=== PATIENT | male | born 1975 | race Caucasian/White ===

== ENCOUNTER 2017-05-01 09:40 | Emergency (ER) | payer BC ==
[~2017-05-01] VITALS: Ht 182.9 cm; Wt 89.8 kg
[~2017-05-01 09:40] MED LIST: LVF500T PO; METR500T PO; NF-ESOM40C PO; RANI75TA30 PO; ROCURONIUM 10 MG/ML 5 ML SYRINGE IV ONE; SUCCINYLCHOLINE INJ 100 MG/5 ML SYR ONE
[2017-05-01] MEDS ORDERED: PROPOFOL DRIP (ICU) 100 ML IV ONE (09:45)
[2017-05-01] MEDS ORDERED: NS IV 1000 ML 1,000 ML IV ONE (09:54)
[2017-05-01 09:59] LABS: ABG BASE EXCESS -7.4 MMOL/L (-2.5-2.5); ABG OXYGEN SATURATION 93 % (94-100); ABG PCO2 38 MMHG (35-45); ABG PO2 59 MMHG (79-93); ABG TCO2 19.5 MMOL/L (21.0-31.0)
[2017-05-01 10:03] LABS: ALLENS TEST YES-POS; INSPIRED O2 15; PATIENT TEMP 95.4; VENTILATOR NO
[2017-05-01 10:09] LABS: BASOPHILS # (AUTO) 0.1 10^3/uL (0.0-0.1); BASOPHILS % (AUTO) 0 % (0-10); EOSINOPHILS # (AUTO) 0.3 10^3/uL (0.0-0.3); EOSINOPHILS % (AUTO) 2 % (0-10); HEMATOCRIT 46 % (40-54); HEMOGLOBIN 15.9 G/DL (13.3-17.7); LYMPHOCYTES # (AUTO) 4.6 X 10^3 (1.0-4.0); LYMPHOCYTES % (AUTO) 28 % (12-44); MEAN CORPUSCULAR HEMOGLOBIN 32 PG (25-34); MEAN CORPUSCULAR HGB CONC 35 G/DL (32-36); MEAN CORPUSCULAR VOLUME 93 FL (80-99); MEAN PLATELET VOLUME 9.7 FL (7.4-10.4); MONOCYTES # (AUTO) 0.8 X 10^3 (0.0-1.0); MONOCYTES % (AUTO) 5 % (0-12); NEUTROPHILS # (AUTO) 10.8 X 10^3 (1.8-7.8); NEUTROPHILS % (AUTO) 66 % (42-75); PLATELET COUNT 216 10^3/uL (130-400); RED BLOOD COUNT 4.93 10^6/uL (4.35-5.85); RED CELL DISTRIBUTION WIDTH 13.5 % (10.0-14.5); WHITE BLOOD COUNT 16.5 10^3/uL (4.3-11.0)
[2017-05-01] MEDS ORDERED: RT-ALBUTEROL/IPRATROPIUM 3 ML (DUONEB) VIAL ONE ×2 (10:14→13:26)
[2017-05-01] MEDS ORDERED: RT-ALBUTEROL SULF 2.5 MG/3 ML PRE-MIX VIAL ONE (10:15)
[2017-05-01] MEDS ORDERED: DEXAMETHASONE 4 MG/ML SDV (DECADRON) ONE (10:16)
[2017-05-01] MEDS ORDERED: FUROSEMIDE 40 MG/4 ML INJ (LASIX) ONE (10:17)
[2017-05-01] MEDS ORDERED: methylPREDNISolone 125 MG (Solu-MEDROL) VIAL ONE (10:17)
[2017-05-01 10:18] LABS: BILIRUBIN,URINE NEGATIVE (NEGATIVE); CLARITY,URINE CLEAR; COLOR,URINE YELLOW; GLUCOSE, URINE (UA) 2+ (NEGATIVE); KETONES,URINE NEGATIVE (NEGATIVE); LEUKOCYTE ESTERASE ,URINE NEGATIVE (NEGATIVE); NITRITE,URINE NEGATIVE (NEGATIVE); PH,URINE 7 (5-9); PROTEIN,URINE 3+ (NEGATIVE); UROBILINOGEN,URINE NORMAL (NORMAL)
[2017-05-01 10:19] LABS: INR 1.1 (0.8-1.4); PROTHROMBIN TIME PATIENT 14.4 SEC (12.2-14.7)
[2017-05-01] MEDS ORDERED: cefTRIAXone 2 GM (ROCEPHIN) VIAL ONE (10:23)
[2017-05-01] MEDS ORDERED: NS (IVPB) 100 ML ONE ×3 (10:24→15:59)
[2017-05-01 10:28] LABS: AMPHETAMINE SCREEN, URINE NEGATIVE (NEGATIVE); BARBITURATE SCREEN URINE NEGATIVE (NEGATIVE); BENZODIAZEPINES SCREEN URINE NEGATIVE (NEGATIVE); CANNABINOID SCREEN, URINE POSITIVE (NEGATIVE); COCAINE SCREEN URINE NEGATIVE (NEGATIVE); METHADONE STAT NEGATIVE (NEGATIVE); METHAMPHETAMINE SCREEN URINE S NEGATIVE (NEGATIVE); OPIATE SCREEN URINE NEGATIVE (NEGATIVE); OXYCODONE STAT NEGATIVE (NEGATIVE); PROPOXYPHENE STAT NEGATIVE (NEGATIVE); TRICYCLIC ANTIDEPRESSANTS SCRE NEGATIVE (NEGATIVE)
[2017-05-01] MEDS ORDERED: FUROSEMIDE 40 MG/4 ML INJ (LASIX) IVP ONE (10:30)
[2017-05-01] MEDS ORDERED: NALOXONE 0.4 MG/ML 1 ML (NARCAN) VIAL ONE (10:30)
[2017-05-01] MEDS ORDERED: DOPamine DRIP 400,000 MCG/250 ML BAG IV ONE (10:30)
[2017-05-01] MEDS ORDERED: cefTRIAXone INJECTION 2,000 MG in NS (IVPB) 100 ML IV ONE (10:30)
[2017-05-01] MEDS ORDERED: RT-ALBUTEROL/IPRATROPIUM 3 ML (DUONEB) VIAL INH ONE ×2 (10:30→13:30)
[2017-05-01] MEDS ORDERED: ATROPINE INJECTION 1 MG/10 ML SYR (ABBOTT) ONE (10:30)
[2017-05-01] MEDS ORDERED: methylPREDNISolone 125 MG (Solu-MEDROL) VIAL IVP ONE (10:30)
[2017-05-01] MEDS ORDERED: DEXAMETHASONE 4 MG/ML SDV (DECADRON) IH ONE (10:30)
[2017-05-01] MEDS ORDERED: EPINEPHrine INJECTION 1 MG/ML AMP ONE (10:30)
[2017-05-01 10:31] LABS: ALANINE AMINOTRANSFERASE 37 U/L (0-55); ALBUMIN 2.8 GM/DL (3.2-4.5); ALKALINE PHOSPHATASE 69 U/L (40-136); BILIRUBIN,TOTAL 0.3 MG/DL (0.1-1.0); BUN/CREATININE RATIO 12; CARBON DIOXIDE 19 MMOL/L (21-32); CHLORIDE 111 MMOL/L (98-107); CREATININE SERUM 0.95 MG/DL (0.60-1.30); GFR ESTIMATED > 60; GLUCOSE 206 MG/DL (70-105); MAGNESIUM 1.7 MG/DL (1.8-2.4); POTASSIUM 3.5 MMOL/L (3.6-5.0); SODIUM 140 MMOL/L (135-145); TOTAL PROTEIN 4.8 GM/DL (6.4-8.2)
[2017-05-01 10:35] LABS: ACETAMINOPHEN < 10 UG/ML (10-30)
[2017-05-01] MEDS ORDERED: LABETALOL HCL 20 MG/4 ML VIAL ONE (10:39)
[2017-05-01 10:43] LABS: BACTERIA,URINE NEGATIVE /HPF
[2017-05-01 10:44] LABS: BAND NEUTROPHILS 0 %; BASOPHILS % (MANUAL) 0 %; EOSINOPHILS % (MANUAL) 0 %; LYMPHOCYTES % (MANUAL) 22 %; MONOCYTES % (MANUAL) 2 %; NEUTROPHILS % (MANUAL) 76 %; RBC MORPH NORMAL
--- NOTE | 2017-05-01 10:44 | Diagnostic Imaging Report ---
INDICATION: Status post code. EXAMINATION: Chest 05/01/2017 FINDINGS: Diffuse airspace and increased interstitial markings seen throughout both lungs left greater than right. There is no pneumothorax. There are no effusions. Heart is minimally prominent. Pulmonary vascular congestion is noted. ET tube tip just below the thoracic inlet. IMPRESSION: 1. Diffuse pulmonary edema with likely superimposed infiltrate left greater than right. Dictated by: Dictated on workstation # [id number]
[2017-05-01] MEDS ORDERED: LABETALOL INJECTION 200 MG in NS (IVPB) 160 ML IV PRN (10:45)
--- NOTE | 2017-05-01 10:47 | Anesthesia-Procedure Note ---
Procedures/Interventions Procedure Start/Stop/Diagnosis Date of Procedure: May 01, 2017 Start Time: 09:44 Referring Physician: Dr Velasquez Preprocedural Diagnosis: Code Blue Brief History Patient with a friend and spontaneously went unconscious. CPR started at the scene. Agonal respirations present, assist bag ventilation by RN and RT with SaO2 87-89%. Stop Time: 10:01 Intubation Reason Intubation/Diagnosis: code blue RSI: Yes Vital Signs Pre-procedure Hypertensive. HR 100-110, SaO2 87-89% with bag mask ventilation Intubation Method: orotracheal (8.0 ett) Videoscope used: Yes (Jimenez X blade) Grade View: 1 Medications: Propofol (100 mg ), Succinylcholine (100 mg) Mask Ventilation: positive Positive End Tide CO2: Yes Breath Sounds after Intubation: bilateral-equal ETT Securred @ (cm): 22 Intubated with ease: Yes (bekah red blood coming from patient's mouth prior to intubation. Assumed possible tongue, oral injury from prior events??? Unable to determine during intubation. Bleeding did not continue.) Intubation Complications: no complications Post Intubation Xray-done: Yes Post Procedure Patient's SaO2 gradually decreased to 70% after intubation. EtCO2 32, good bilateral breath sounds, CXR shows correct placement of ett. RT increased Peep to 12 and SaO2 slowly climbed to 85%. 100mg Propofol given post intubation due to Hypertension and patient attempting to assist ventilation, and biting on OG as it was being placed. After correct tube placement confirmed by CXR, 50mg Rocuronium given (Ok'd per Dr. Velasquez). Plans being made to ship patient to [facility]. Care turned over to: CANDIDO Gaming CRNA May 01, 2017 10:47
[2017-05-01] MEDS ORDERED: PHENYTOIN 250 MG/5 ML INJ (DILANTIN) VIAL ONE ×2 (10:52→10:54)
[2017-05-01] MEDS ORDERED: NS (IVPB) 50 ML ONE (10:55)
--- NOTE | 2017-05-01 10:57 | Consultation-Cardiology ---
HPI-Cardiology Cardiology Consultation: Date of Consultation 05/01/17 Date of Admission Attending Physician Admitting Physician Lashell,Local Physician Consulting Physician Faith RODAS MD HPI: Time Seen by Provider: 10:35 Chief Complaint: Cardiac arrest this is a 41-year-old gentleman who was brought to ER by EMS due to arrest, unresponsiveness in the field. He was intubated and ventilated in the field. In our ER the patient was in sinus tachycardia on EKG with no ST elevation or depression. He was unresponsive and not moving any of his limbs. Heart rate was 118 BPM. Systolic blood pressure was over 220 mmHg. History was limited. Stat head CT showed large bleed. Chest x-ray showed bilateral diffuse infiltrates. Review of Systems-Cardiology Review of Systems Constitutional: As described under HPI Eyes: As described under HPI Ears/Nose/Throat: As described under HPI Respiratory: As described under HPI Cardiovascular: As described under HPI Gastrointestinal: no symptoms reported Genitourinary: no symptoms reported Musculoskeletal: no symptoms reported Skin: no symptoms reported Psychiatric/Neurological: other (Intubated/ventilated) Hematologic: As described under HPI EGZ-Siwemc-Vknsrj Hx Immunizations Up To Date Tetanus Booster (TDap): More than 5yrs Past Medical History PMH As described under Assessment. Allergies and Home Medications Allergies Coded Allergies: Penicillins (Unverified Allergy, Unknown, 09/25/12) Patient Home Medication List Home Medication List Reviewed: Yes Physical Exam-Cardiology Physical Exam Vital Signs/I&O Vital Sign - Last 12Hours 05/01/17 05/01/17 05/01/17 05/01/17 11:35 11:47 12:24 14:14 Pulse 140 115 143 Resp 20 18 24 B/P (MAP) 205/154 Pulse Ox 76 93 84 O2 Delivery Ambu Bag Ambu-Bag FiO2 100 100 05/01/17 05/01/17 16:30 16:35 Temp 96.4 Pulse 146 146 Resp 24 24 B/P (MAP) 109/94 109/94 (99) Pulse Ox 88 88 O2 Delivery Mechanical Ventilator Ambu Bag O2 Flow Rate 100.00 100.00 Capillary Refill : Constitutional: other (intubated/ventilated) HEENT: No PERRL, No normal ENT inspection, No TMs normal, No pharynx normal, No scleral icterus (R), No scleral icterus (L), No pale conjunctivae (R), No pale conjunctivae (L), No photophobia, No TM abnormal (R), No TM abnormal (L), No pharyngeal erythema, No tonsillar exudate, No other, No discharge, No EOMI, No hearing is well preserved, No hard of hearing, No oral hygience is good, No ulceration, No xanthelasmas are seen Neck: No non-tender, No full range of motion, No supple, No normal inspection, No carotid bruit, No limited range of motion, No lymphadenopathy (R), No lymphadenopathy (L), No tender lateral, No tender midline, No thyromegaly, No other, No carotid pulses are 2 + bilaterally, No with good upstrokes Respiratory: respiratory distress, crackles Cardiovascular: regular rate-rhythm, No irregularly irregular, No extra beats, No parasternal heave is noted, No JVD, No edema, No bradycardia, tachycardia, No point of maximal impulse, No cardiac thrills are palpable, S1 and S2, No gallop/S3, No gallop/S4, No diastolic murmur, No systolic murmur, No friction rub, No click, No other Gastrointestinal: No tender, No soft, No round, No distended, No pulsatile mass , No organomegaly, No guarding, No rebound, No tenderness, No hernia, No mass, No audible bowel sounds, No abnormal bowel sounds, No abdominal bruits, No spleenomegaly, No other Rectal: deferred Extremities: No normal range of motion, No non-tender, normal inspection, No pedal edema, No calf tenderness, No normal capillary refill, No pelvis stable, No calf tenderness, No inflammation, No pedal edema, No slow capillary refill, No swelling, No other, No abrasion, No clubbing, No cyanosis, No ecchymosis, No laceration, no lower extremity edema bilateral, No significant edema, No tenderness, No wound Neurologic/Psychiatric: No dicer operator II-XII nml as tested, No no motor/sensory deficits, No alert, No normal mood/affect, No oriented x 3, No abnormal cerebellar tests, No abnormal dicer operator II-XII, No abnormal gait, No aphasia, No EOM palsy, No facial droop, No motor weakness, No sensory deficit, No depressed affect, No disoriented x 3, other (intubated/ventilated), No grossly intact, No power is 5/5 both on sides Skin: cool Data Review Labs Laboratory Tests 05/01/17 09:54: Blood Gas Puncture Site r radial, Blood Gas Patient Temperature 95.4, Arterial Blood pH 7.30*L, Arterial Blood Partial Pressure CO2 38, Arterial Blood Partial Pressure O2 59L, Arterial Blood HCO3 18L, Arterial Blood Total CO2 19.5L, Arterial Blood Oxygen Saturation 93L, Arterial Blood Base Excess -7.4L, Darrell Test YES-POS, Blood Gas Ventilator Setting NO, Blood Gas Inspired Oxygen 15 05/01/17 10:00: White Blood Count 16.5H, Red Blood Count 4.93, Hemoglobin 15.9, Hematocrit 46, Mean Corpuscular Volume 93, Mean Corpuscular Hemoglobin 32, Mean Corpuscular Hemoglobin Concent 35, Red Cell Distribution Width 13.5, Platelet Count 216, Mean Platelet Volume 9.7, Neutrophils (%) (Auto) 66, Lymphocytes (%) (Auto) 28, Monocytes (%) (Auto) 5, Eosinophils (%) (Auto) 2, Basophils (%) (Auto) 0, Neutrophils # (Auto) 10.8H, Lymphocytes # (Auto) 4.6H, Monocytes # (Auto) 0.8, Eosinophils # (Auto) 0.3, Basophils # (Auto) 0.1, Neutrophils % (Manual) 76, Lymphocytes % (Manual) 22, Monocytes % (Manual) 2, Eosinophils % (Manual) 0, Basophils % (Manual) 0, Band Neutrophils 0, Blood Morphology Comment NORMAL, Prothrombin Time 14.4, INR Comment 1.1, Activated Partial Thromboplast Time 30, Sodium Level 140, Potassium Level 3.5L, Chloride Level 111H, Carbon Dioxide Level 19L, Anion Gap 10, Blood Urea Nitrogen 11, Creatinine 0.95, Estimat Glomerular Filtration Rate > 60, BUN/Creatinine Ratio 12, Glucose Level 206H, Lactic Acid Level 4.09*H, Calcium Level 7.0L, Magnesium Level 1.7L, Total Bilirubin 0.3, Aspartate Amino Transf (AST/SGOT) 43H, Alanine Aminotransferase ( ALT/SGPT) 37, Alkaline Phosphatase 69, Troponin I < 0.30, B-Type Natriuretic Peptide 23.2, Total Protein 4.8L, Albumin 2.8L, Acetaminophen Level < 10L, Serum Alcohol < 10 05/01/17 10:08: Urine Color YELLOW, Urine Clarity CLEAR, Urine pH 7, Urine Specific [place] 1.010L, Urine Protein 3+H, Urine Glucose (UA) 2+H, Urine Ketones NEGATIVE, Urine Nitrite NEGATIVE, Urine Bilirubin NEGATIVE, Urine Urobilinogen NORMAL, Urine Leukocyte Esterase NEGATIVE, Urine RBC (Auto) 4+H, Urine RBC 10-25H, Urine WBC NONE, Urine Squamous Epithelial Cells NONE, Urine Crystals NONE, Urine Bacteria NEGATIVE, Urine Casts NONE, Urine Mucus NEGATIVE, Urine Culture Indicated NO, Urine Opiates Screen NEGATIVE, Urine Oxycodone Screen NEGATIVE, Urine Methadone Screen NEGATIVE, Urine Propoxyphene Screen NEGATIVE, Urine Barbiturates Screen NEGATIVE, Ur Tricyclic Antidepressants Screen NEGATIVE, Urine Phencyclidine Screen NEGATIVE, Urine Amphetamines Screen NEGATIVE, Urine Methamphetamines Screen NEGATIVE, Urine Benzodiazepines Screen NEGATIVE, Urine Cocaine Screen NEGATIVE, Urine Cannabinoids Screen POSITIVEH 05/01/17 12:22: Blood Gas Puncture Site r brachial, Blood Gas Patient Temperature 96.6, Arterial Blood pH 6.97*L, Arterial Blood Partial Pressure CO2 102*H, Arterial Blood Partial Pressure O2 60L, Arterial Blood HCO3 23, Arterial Blood Total CO2 26.2, Arterial Blood Oxygen Saturation 83L, Arterial Blood Base Excess -8.0L, Darrell Test YES-POS, Blood Gas Ventilator Setting YES, Blood Gas Inspired Oxygen 100 05/01/17 13:13: Lactic Acid Level 3.83*H 05/01/17 13:54: Blood Gas Puncture Site R RADIAL, Blood Gas Patient Temperature 96.4, Arterial Blood pH 7.01*L, Arterial Blood Partial Pressure CO2 102*H, Arterial Blood Partial Pressure O2 54L, Arterial Blood HCO3 25, Arterial Blood Total CO2 28.2, Arterial Blood Oxygen Saturation 81L, Arterial Blood Base Excess -5.6L, Darrell Test YES-POS, Blood Gas Ventilator Setting YES, Blood Gas Inspired Oxygen NS 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 etiology unclear, aneurysm rupture vs severe HTN associated?. plan to shift to [facility]. Mannitol infusion. CT head was reviewed by self. Hypertensive crisis: SBP > 220mmhg. Given labetalol bolus. Will start nicardipine infusion. watch for precipitous drop in BP. Keep systolic BP > 160mmhg. Pulmonary edema/ARDS: etiology unclear. intubated, difficult to ventilate. CXR was reviewed by self. Cardiac arrest? : unclear primary arrest. EKG on arrival shows sinus tachycardia with ST elevation or depression. Telemetry shows sinus tachycardia. Unresponsive, with poor prognosis. Critical patient - spend over 30 minutes. Thank you for your consultation. Please call me if you have any questions. Mia Rodas MD, FACP, FACC, FSCAI, FHRS, CCDS Interventional Cardiology Cardiac Electrophysiology Vascular Medicine and Endovascular Interventions Faith RODAS MD May 01, 2017 10:57
[2017-05-01] MEDS ORDERED: niCARdipine 50 MG/NS 250 ML IV DRIP IV SCH ×2 (11:00)
[2017-05-01] MEDS ORDERED: PHENYTOIN INJECTION 1,000 MG in NS (IVPB) 50 ML, 0.2 MICRON FILTER IV SET 1 EACH IV ONE ×3 (11:00)
--- NOTE | 2017-05-01 11:00 | Diagnostic Imaging Report ---
INDICATION: Possible stroke. Status post code. EXAMINATION: CT of the brain without contrast 05/01/2017. FINDINGS: Axial imaging of the brain without contrast Diffuse subarachnoid hemorrhage is noted. There is hemorrhage involving nearly all the sulci bilaterally. There is blood within the basilar cisterns. Hyperdensity is noted within the third ventricle with hyperdensity in the fourth ventricle as well. No significant hydrocephalus is seen at this time. There is no mass, mass effect or midline shift. No definite acute infarcts appreciated. Loss of the normal sulci noted likely due to underlying edema. The osseous structures are intact. Visualized paranasal sinuses and mastoid air cells demonstrate no acute disease. Mucosal thickening incidentally noted bilaterally within the visualized maxillary sinuses. IMPRESSION: 1. Marked diffuse bilateral subarachnoid hemorrhage as described above with likely developing edema. 2. Intraventricular hemorrhage. Exact source of hemorrhage is not appreciated. Followup and/or further imaging may be warranted. Findings called to the ER by Dr. Lóepz on 05/01/2017 at 10:52 a.m. Dictated by: Dictated on workstation # [id number]
[2017-05-01] MEDS ORDERED: MAGNESIUM 1 GM/100 ML IVPB 100 ML IV ONE ×2 (11:30)
[2017-05-01] MEDS ORDERED: DOBUTamine INJECTION 250 MG in NS (IVPB) 250 ML IV SCH (11:45)
[2017-05-01] MEDS ORDERED: MANNITOL 20% IV PREMIX 500 ML IV ONE (11:55)
[2017-05-01] MEDS ORDERED: MANNITOL 25% 12.5 GM/50 ML VIAL IV ONE (12:00)
--- NOTE | 2017-05-01 12:01 | ED CPR ---
HPI-CPR General Chief Complaint: Code Blue Stated Complaint: CODE BLUE Source of Information: EMS, Other (FRIEND) History of Present Illness Date Seen by Provider: May 01, 2017 Time Seen by Provider: 09:42 Initial Comments PT ARRIVES VIA EMS PT HAD WITNESSED ARREST PT WAS PASSENGER IN VEHICLE WITH HIS FRIEND ( WERE ON THEIR WAY TO GO FISHING, AND WERE AT A GAS STATION ) AND SUDDENLY, FRIEND WITNESSED PT HAVING STIFFNESS OF HIS ENTIRE BODY, AGONAL SNOROUS BREATHING AND WAS UNRESPONSIVE, AND COULD NOT FEEL PULSE AND PT WAS NOT BREATHING FRIEND IMMEDIATELY BEGAN CPR AND CALLED EMS CPR WAS CONTINUED BY EMS/FIRE DEPT, WITH RETURN OF CIRCULATION. EMS CONTINUED BAGGING PT AND BROUGHT PT TO ER, PT IS APNEIC WITH RARE AGONAL BREATHING. NO MEDICATIONS HAVE BEEN GIVEN BY EMS. EMS REPORT THERE WAS BRIGHT RED BLOOD NOTED IN HIS MOUTH WHEN THEY PLACED ORAL AIRWAY, BEFORE BAGGING PT. EMS DID NOT ATTEMPT TO INTUBATE PT, AND NOTHING ELSE WAS PLACED IN PT'S MOUTH, OTHER THAN ORAL AIRWAY. FRIEND REPORTS THAT HE WAS WITH PT ALL NIGHT AND THIS MORNING, AND PT HAD 5 BEERS LAST NIGHT, BUT NONE TODAY. ONLY INTAKE TODAY WAS PT WAS FINE ALL DAY YESTERDAY WHEN THEY WERE FISHING AND WAS COMPLETELY FINE THIS AM, JUST PRIOR TO THIS EVENT. DAD AND BROTHER ARRIVE, AND REPORT THAT PT DOES NOT HAVE ANY KNOWN MEDICAL PROBLEMS AT ALL PT HAS HAD VISIT IN 2012 FOR APPY AND EGD AND HIATAL HERNIA REPAIR. Allergies and Home Medications Allergies Coded Allergies: Penicillins (Unverified Allergy, Unknown, 09/25/12) Review of Systems Constitutional: other (UNABLE TO OBTAIN) Past Xxdseql-Uusvty-Hpqcog Hx Patient Social History Alcohol Use: Occasionally Uses (PER FRIEND) Recreational Drug Use: Yes (THC--PER FRIEND) Immunizations Up To Date Tetanus Booster (TDap): More than 5yrs PED Vaccines UTD: Yes Surgeries History of Surgeries: Yes (EGD; HIATAL HERNIA REPAIR) Surgeries: Abdominal, Appendectomy Reproductive System Hx Reproductive Disorders: No Gastrointestinal Gastrointestinal Disorders: Ulcer Blood Transfusions Adverse Reaction to a Blood Tr: No Physical Exam Vital Signs Vital Signs - First Documented 05/01/17 10:20 O2 Delivery Ambu Bag FiO2 100 Capillary Refill : Focused Exam Evaluation Lactate Level Laboratory Tests 05/01/17 10:00: Lactic Acid Level 4.09*H 05/01/17 12:03: Lactic Acid Level Laboratory Tests Test 05/01/17 10:00 05/01/17 12:03 Lactic Acid Level 4.09 MMOL/L (0.50-2.00) *H Reason for Intubation: code blue Intubation Method: orotracheal (8.0 ett) Medications: Propofol (100 mg ), Succinylcholine (100 mg) Positive End Tide CO2: Yes Breath Sounds after Intubation: bilateral-equal Intubation Complications: no complications Post Intubation Xray: Yes Progress/Results/Core Measures Results/Orders Lab Results Laboratory Tests Test 05/01/17 09:54 05/01/17 10:00 05/01/17 10:08 05/01/17 12:03 Range/Units Blood Gas Puncture Site r radial Blood Gas Patient Temperature 95.4 Arterial Blood pH 7.30 *L 7.37-7.43 Arterial Blood Partial Pressure CO2 38 35-45 MMHG Arterial Blood Partial Pressure O2 59 L 79-93 MMHG Arterial Blood HCO3 18 L 23-27 MMOL/L Arterial Blood Total CO2 19.5 L 21.0-31.0 MMOL/L Arterial Blood Oxygen Saturation 93 L 94-100 % Arterial Blood Base Excess -7.4 L -2.5-2.5 MMOL/L Darrell Test YES-POS Blood Gas Ventilator Setting NO Blood Gas Inspired Oxygen 15 White Blood Count 16.5 H 4.3-11.0 10^3/uL Red Blood Count 4.93 4.35-5.85 10^6/uL Hemoglobin 15.9 13.3-17.7 G/DL Hematocrit 46 40-54 % Mean Corpuscular Volume 93 80-99 FL Mean Corpuscular Hemoglobin 32 25-34 PG Mean Corpuscular Hemoglobin Concent 35 32-36 G/DL Red Cell Distribution Width 13.5 10.0-14.5 % Platelet Count 216 130-400 10^3/uL Mean Platelet Volume 9.7 7.4-10.4 FL Neutrophils (%) (Auto) 66 42-75 % Lymphocytes (%) (Auto) 28 12-44 % Monocytes (%) (Auto) 5 0-12 % Eosinophils (%) (Auto) 2 0-10 % Basophils (%) (Auto) 0 0-10 % Neutrophils # (Auto) 10.8 H 1.8-7.8 X 10^3 Lymphocytes # (Auto) 4.6 H 1.0-4.0 X 10^3 Monocytes # (Auto) 0.8 0.0-1.0 X 10^3 Eosinophils # (Auto) 0.3 0.0-0.3 10^3/uL Basophils # (Auto) 0.1 0.0-0.1 10^3/uL Neutrophils % (Manual) 76 % Lymphocytes % (Manual) 22 % Monocytes % (Manual) 2 % Eosinophils % (Manual) 0 % Basophils % (Manual) 0 % Band Neutrophils 0 % Blood Morphology Comment NORMAL Prothrombin Time 14.4 12.2-14.7 SEC INR Comment 1.1 0.8-1.4 Activated Partial Thromboplast Time 30 24-35 SEC Sodium Level 140 135-145 MMOL/L Potassium Level 3.5 L 3.6-5.0 MMOL/L Chloride Level 111 H 98-107 MMOL/L Carbon Dioxide Level 19 L 21-32 MMOL/L Anion Gap 10 5-14 MMOL/L Blood Urea Nitrogen 11 7-18 MG/DL Creatinine 0.95 0.60-1.30 MG/DL Estimat Glomerular Filtration Rate > 60 BUN/Creatinine Ratio 12 Glucose Level 206 H 70-105 MG/DL Lactic Acid Level 4.09 *H 0.50-2.00 MMOL/L Calcium Level 7.0 L 8.5-10.1 MG/DL Magnesium Level 1.7 L 1.8-2.4 MG/DL Total Bilirubin 0.3 0.1-1.0 MG/DL Aspartate Amino Transf (AST/SGOT) 43 H 5-34 U/L Alanine Aminotransferase (ALT/SGPT) 37 0-55 U/L Alkaline Phosphatase 69 40-136 U/L Troponin I < 0.30 <0.30 NG/ML B-Type Natriuretic Peptide 23.2 <100.0 PG/ML Total Protein 4.8 L 6.4-8.2 GM/DL Albumin 2.8 L 3.2-4.5 GM/DL Acetaminophen Level < 10 L 10-30 UG/ML Serum Alcohol < 10 <10 MG/DL Urine Color YELLOW Urine Clarity CLEAR Urine pH 7 5-9 Urine Specific Earth 1.010 L 1.016-1.022 Urine Protein 3+ H NEGATIVE Urine Glucose (UA) 2+ H NEGATIVE Urine Ketones NEGATIVE NEGATIVE Urine Nitrite NEGATIVE NEGATIVE Urine Bilirubin NEGATIVE NEGATIVE Urine Urobilinogen NORMAL NORMAL MG/DL Urine Leukocyte Esterase NEGATIVE NEGATIVE Urine RBC (Auto) 4+ H NEGATIVE Urine RBC 10-25 H /HPF Urine WBC NONE /HPF Urine Squamous Epithelial Cells NONE /HPF Urine Crystals NONE /LPF Urine Bacteria NEGATIVE /HPF Urine Casts NONE /LPF Urine Mucus NEGATIVE /LPF Urine Culture Indicated NO Urine Opiates Screen NEGATIVE NEGATIVE Urine Oxycodone Screen NEGATIVE NEGATIVE Urine Methadone Screen NEGATIVE NEGATIVE Urine Propoxyphene Screen NEGATIVE NEGATIVE Urine Barbiturates Screen NEGATIVE NEGATIVE Ur Tricyclic Antidepressants Screen NEGATIVE NEGATIVE Urine Phencyclidine Screen NEGATIVE NEGATIVE Urine Amphetamines Screen NEGATIVE NEGATIVE Urine Methamphetamines Screen NEGATIVE NEGATIVE Urine Benzodiazepines Screen NEGATIVE NEGATIVE Urine Cocaine Screen NEGATIVE NEGATIVE Urine Cannabinoids Screen POSITIVE H NEGATIVE Test 05/01/17 12:22 Range/Units Blood Gas Puncture Site r brachial Blood Gas Patient Temperature 96.6 Arterial Blood pH 6.97 *L 7.37-7.43 Arterial Blood Partial Pressure CO2 102 *H 35-45 MMHG Arterial Blood Partial Pressure O2 60 L 79-93 MMHG Arterial Blood HCO3 23 23-27 MMOL/L Arterial Blood Total CO2 26.2 21.0-31.0 MMOL/L Arterial Blood Oxygen Saturation 83 L 94-100 % Arterial Blood Base Excess -8.0 L -2.5-2.5 MMOL/L Darrell Test YES-POS Blood Gas Ventilator Setting YES Blood Gas Inspired Oxygen 100 My Orders Orders - ELIANE AYERS DO Arterial Blood Gas (05/01/17 09:53) Saline Lock/Iv-Start (05/01/17 09:54) Ekg Tracing (05/01/17 09:54) Monitor-Rhythm Ecg Trace Only (05/01/17 09:54) Acetaminophen (05/01/17 09:54) Alcohol (05/01/17 09:54) BNP (05/01/17 09:54) Cbc With Automated Diff (05/01/17 09:54) Comprehensive Metabolic Panel (05/01/17 09:54) Drug Screen Stat (Urine) (05/01/17 09:54) Magnesium (05/01/17 09:54) Protime With Inr (05/01/17 09:54) Partial Thromboplastin Time (05/01/17 09:54) Troponin I (05/01/17 09:54) Ua Culture If Indicated (05/01/17 09:54) Chest 1 View, Ap/Pa Only (05/01/17 09:54) Rt Request For Service (05/01/17 09:54) Saline Lock/Iv-Start (05/01/17 09:54) Ns Iv 1000 Ml (Sodium Chloride 0.9%) (05/01/17 09:54) Catheter(Urinary) Insert & Ass 03,15 (05/01/17 09:54) Ng Tube Insert & Assessment (05/01/17 09:54) Lactic Acid Analyzer (05/01/17 09:56) Blood Culture (05/01/17 09:56) Manual Differential (05/01/17 10:00) Furosemide Injection (Lasix Injection) (05/01/17 10:30) Methylprednisolone Sod Succ (Solu-Medrol (05/01/17 10:30) Albuterol/Ipra Inhalation Soln (Duoneb I (05/01/17 10:30) Dexamethasone Injection (Decadron Inject (05/01/17 10:30) Svn Sm Volume Nebulizer Rt-Rfs (05/01/17 10:17) Albuterol/Ipra Inhalation Soln (Duoneb I (05/01/17 10:14) Albuterol Pre-Mix Nebs (Rt) (Proventil (05/01/17 10:15) Dexamethasone Injection (Decadron Inject (05/01/17 10:16) Furosemide Injection (Lasix Injection) (05/01/17 10:17) Methylprednisolone Sod Succ (Solu-Medrol (05/01/17 10:17) Ceftriaxone Injection (Rocephin Injectio (05/01/17 10:30) Ceftriaxone Injection (Rocephin Injectio (05/01/17 10:23) Ns (Ivpb) (Sodium Chloride 0.9% Ivpb Bag (05/01/17 10:24) Ct Head Wo-R/O Stroke (05/01/17 10:31) Ns (Ivpb) (Sodium C... W/Labetalol Injec (05/01/17 10:45) Labetalol Injection (Normodyne Injection (05/01/17 10:39) Phenytoin Injection (Dilantin Injection) (05/01/17 11:00) Ekg Tracing (05/01/17 11:21) Magnesium 1 Gm/100 Ml Ivpb (Magnesium Desai (05/01/17 11:30) Magnesium 1 Gm/100 Ml Ivpb (Magnesium Desai (05/01/17 11:30) Mannitol 25% Injection (Mannitol 25% Inj (05/01/17 12:00) Arterial Blood Gas (05/01/17 12:10) Rocuronium 5 Ml Syringe (Rocuronium 5 Ml (05/01/17 12:31) Medications Given in ED Current Medications Medications Dose Ordered Sig/Ashok Route Start Time Stop Time Status Last Admin Dose Admin Albuterol Sulfate 2.5 mg STK-MED ONCE .ROUTE 05/01/17 10:15 05/01/17 10:20 DC 05/01/17 11:00 10 MG Albuterol/ Ipratropium 3 ml STK-MED ONCE .ROUTE 05/01/17 10:14 05/01/17 10:19 DC 05/01/17 10:59 2.5 ML Dexamethasone Sodium Phosphate 4 mg STK-MED ONCE .ROUTE 05/01/17 10:16 05/01/17 10:21 DC 05/01/17 10:20 30 MG Vital Signs/I&O Vital Sign - Last 12Hours 05/01/17 10:20 O2 Delivery Ambu Bag FiO2 100 Critical Care Note Critical Care Start Time: 09:44 Stop Time: 10:01 Departure Communication (Admissions) Progress Notes 0939--CALLED DR. PEÑALOZA, AND INFORMED OF EMS ENROUTE WITH PT THAT IS POST CODE BLUE. HE ADVISES TRANSFER TO [facility] FOR COOLING PROTOCOL 0944--CHRIS REY HERE TO INTUBATE PT 0959--CALLED [facility] DIRECT CALL. SPOKE WITH DR. ALMEIDA, BILINGUAL INSIDE SALES REPRESENTATIVE. HE ACCEPTS PT FOR TRANSFER. VENT RECOMMENDATIONS GIVEN 1017--[facility] [employer] [facility] HAVE BEEN CONTACTED AND NONE ARE AVAILABLE DUE TO WEATHER. EMS CONTACTED. 1022--CALLED [facility] DIRECT CALL. MESSAGE LEFT ON MACHINE 1038--SPOKE WITH DR. ALMEIDA AGAIN. UPDATE GIVEN/CHANGE IN STATUS, NOW WITH ADDITIONAL DX OF SUBARACHNOID BLEED. ADVISES LABETALOL AND CONSULT NEUROSURGEON 1040--DR. PEÑALOZA HERE TO SEE PT. HE ADVISES TRANSFER TO IF [facility] IS UNABLE TO CARE FOR PT. 1044--SPOKE WITH DR. ROBISON, NEURO SURGEON. HE ADVISES TRANSFER TO , THEY DO NOT HAVE THE CAPABILITY TO TAKE CARE OF SUBARACHNOID BLEEDS/ANEURYSMS. 1044--CALLED [facility]. PLACED ON HOLD. 1048--STILL ON HOLD WITH [facility]. 1054--[facility] NOW STATES THEY WILL HAVE SOMEONE CALL ME BACK 1103--SPOKE WITH FAMILY AND CONSUMER EDUCATION TEACHER AT . WILL HAVE SOMEONE CALL ME BACK 1130--CALLED [facility]. 1132--SPOKE WITH FAMILY AND CONSUMER EDUCATION TEACHER CECILIA AT . WILL CALL BACKK 1153--SPOKE WITH CECILIA AT AGAIN. UPDATE GIVEN, CHANGE IN CONDITION, PT HAS JUST CODED AGAIN. SHE HAS DISCUSSED WITH NEUROSURGEON AND NEURO-BILINGUAL INSIDE SALES REPRESENTATIVE , DR. SINGLETON, WHO WILL NOT ACCEPT PT DUE TO BEING TOO UNSTABLE. ADVISES MANNITOL 1 GM/KG AND CENTRAL LINE PLACEMENT. SUSPECTS THAT PT MAY BE EXPERIENCING EMINENT BRAIN . WILL CALL BACK FOR UPDATE. 1201--SPOKE WITH DR. PEÑALOZA, UPDATE IN PT'S CONDITION GIVEN. HE DOES NOT HAVE ANY ADDITIONAL RECOMMENDATIONS AT THIS TIME 1220--DR. CANO CONTACTED FOR CENTRAL LINE PLACEMENT 1238--DR. CANO HERE. Impression Impression: Primary Impression: S/P CODE BLUE Additional Impressions: Subarachnoid hemorrhage MALIGNANT HTN Pulmonary edema Acute respiratory failure Hyperglycemia Hypomagnesemia Hypocalcemia Disposition: 02 XFER T-[facility] Departure-Patient Inst. Referrals: NO,LOCAL PHYSICIAN (PCP/Family) Primary Care Physician ELIANE AYERS DO May 01, 2017 12:01
[2017-05-01] MEDS ORDERED: ROCURONIUM 10 MG/ML 5 ML SYRINGE IV ONE ×5 (12:31→19:00)
[2017-05-01 12:32] LABS: ABG OXYGEN SATURATION 83 % (94-100); ABG PO2 60 MMHG (79-93); ABG TCO2 26.2 MMOL/L (21.0-31.0)
[2017-05-01 12:36] LABS: ABG PCO2 102 MMHG (35-45); ABG PH 6.97 (7.37-7.43); ALLENS TEST YES-POS; INSPIRED O2 100; VENTILATOR YES
[2017-05-01 12:37] LABS: PATIENT TEMP 96.6
[2017-05-01] MEDS ORDERED: NOREPINEPHRINE 4 MG/4 ML (LEVOPHED) AMP IV ONE (13:04)
[2017-05-01] MEDS ORDERED: NS (IVPB) 250 ML ONE (13:04)
--- NOTE | 2017-05-01 13:22 | Diagnostic Imaging Report ---
INDICATION: Central line placement. FINDINGS: Portable chest shows interval placement of a central line from the left. Tip is in the SVC just above the right atrium. There is no pneumothorax. The ET tube is in good position. An OG tube is in the stomach. There are persistent bilateral infiltrates. IMPRESSION: Satisfactory line placement with tip in the SVC. No complications are evident. Dictated by: Dictated on workstation # [id number]
[2017-05-01 14:08] LABS: ABG BASE EXCESS -5.6 MMOL/L (-2.5-2.5); ABG OXYGEN SATURATION 81 % (94-100); ABG PO2 54 MMHG (79-93); ABG TCO2 28.2 MMOL/L (21.0-31.0)
[2017-05-01 14:10] LABS: ABG PCO2 102 MMHG (35-45); ABG PH 7.01 (7.37-7.43); ALLENS TEST YES-POS; INSPIRED O2 NS RRT; PATIENT TEMP 96.4; VENTILATOR YES
--- NOTE | 2017-05-01 14:17 | CONSULTATION REPORT ---
DATE OF SERVICE: 05/01/2017 HISTORY OF PRESENT ILLNESS: The patient is a 41-year-old male brought in by EMS for a cardiac arrest. This gentleman was fishing with a friend. The friend reported that he lost consciousness and fell to his side. CPR was initiated by the friend. EMS came in and the patient was intubated; however, pulse was identified. In Emergency Department, he also did have another episode of cardiac arrest requiring initiation of ATLS. He currently has a blood pressure of 80s to 90s systolic on dopamine. A CT scan was performed, which did show a large subarachnoid hemorrhage. His Anderson coma scale is 3. PAST MEDICAL HISTORY: None known. PAST SURGICAL HISTORY: Appendectomy. ALLERGIES: No known drug allergies. MEDICATIONS: None. SOCIAL HISTORY: Positive smoke. Positive social alcohol. FAMILY HISTORY: Noncontributory. REVIEW OF SYSTEMS: This patient is intubated, sedated and nonresponsive with a Anderson coma scale of 3. He has a blown pupil and does not respond to voice, touch or have any eye movements. There are no obvious injuries to the head, neck, or chest as well as abdomen to indicate any trauma or exsanguination. PHYSICAL EXAMINATION: VITAL SIGNS: Systolic blood pressure 80s to 90s on a dopamine drip. CHEST: Clear. Good breath sounds bilaterally. HEART: Regular, no murmurs. EXTREMITIES: No lower extremity edema. Negative Homans sign. No edema. HEENT: No scleral icterus. No cervical lymphadenopathy. ABDOMEN: Soft, nontender, nondistended. NEUROLOGIC: Andrew coma scale of 3 with dilated, nonresponsive pupil. ASSESSMENT AND PLAN: A 41-year-old male with a cardiorespiratory arrest with a subarachnoid hemorrhage. The etiology of the hemorrhage is unknown at this time; however, may be secondary to a cerebral aneurysm. At this time, he will need adequate resuscitation and will require central venous catheters for the multitude of trips and IV fluids. Once stable, he will need to be transferred to a tertiary center. Job ID: [id number] DocumentID: [id number] Dictated Date: 05/01/2017 13:07:51 Marketing And Communications Officer Date: 05/01/2017 14:16:57 Dictated By: ZHENG CANO MD [facility]
[2017-05-01] MEDS ORDERED: LEVETIRACETAM 500 MG/5 ML (KEPPRA) VIAL IV ONE (14:49)
--- NOTE | 2017-05-01 15:06 | OPERATIVE REPORT ---
DATE OF SERVICE: 05/01/2017 PREOPERATIVE DIAGNOSIS: Subarachnoid hemorrhage and cardiac arrest. POSTOPERATIVE DIAGNOSIS: Subarachnoid hemorrhage and cardiac arrest. PROCEDURE: Placement of left subclavian central venous catheter. SURGEON: Dr. Cano. ANESTHESIA: Local. ESTIMATED BLOOD LOSS: Minimal. FINDINGS: Catheter at superior vena cava -- right atrial junction. INDICATIONS: The patient is a 41-year-old male, brought in by EMS for cardiorespiratory arrest and unconsciousness. He arrested in the Emergency Department as well. A CT scan was able to be performed, which did show a large subarachnoid hemorrhage. DESCRIPTION OF PROCEDURE: The chest and neck were prepped and draped in standard surgical fashion. The left subclavian vein was then cannulated with drawing of venous blood. The guidewire was then inserted without any resistance. The cannulating needle removed and a small skin incision made using an 11 blade. A tract was then created using a venous dilator. A triple lumen central venous catheter was then placed over the guidewire using the Seldinger technique. The guidewire was then removed and the catheter was sutured to the skin using 3-0 silk sutures. Catheter was then covered with Op-Site. The patient tolerated the procedure well. We will get a post-procedure chest x-ray. Job ID: [id number] DocumentID: [id number] Dictated Date: 05/01/2017 13:10:46 Control Tower Operator Date: 05/01/2017 14:32:17 Dictated By: ZHENG CANO MD
--- NOTE | 2017-05-01 15:13 | History & Physical-Hospitalist ---
History of Present Illness HPI/Chief Complaint Pt is a 41yoCM with no known PMH who presented to the ER following an out of hospital arrest. Patient is sedated and unresponsive and unable to provide any history. All history is obtained from charts and family at bedside. He reported had a very severe headache on 04/26 which he described to a friend as "1000x worse than a migraine" but then improved and was doing well. He was out fishing and camping with a friend and was feeling well up until this morning. He was sitting in a vehicle with his friend when his friend noticed that he dropped his drink and became very stiff. His friend noticed immediately that he did not have a pulse and start CPR at the scene. EMS was called and continued CPR and obtained ROSC in the field. He was brought here and was being bagged. He was immediately intubated upon arrival but went in to a PEA and was coded per ACLS protocol here. ROSC was obtained here and since 1153 he has not coded again. He was noticed to have unequal pupils and CT Head was obtained while arrangements were being made to transfer patient to tertiary care center. CT Head revealed SAH and contacts were made with [facility] about potential transfer there for neurosurgical intervention. He was denied transfer at that time due to having just coded and having labile blood pressures. By the time of my interview 2 hours later he has been relatively stable on dopamine and levophed with SBP > 100 for over one hour. Family has requested attempting to make contact with again for transfer which I have done. Source: family, RN/MD Exam Limitations: clinical condition Date Seen 05/01/17 Time Seen by Provider: 14:45 Attending Physician Supa PCP No,Local Physician Referring Physician Date of Admission Home Medications & Allergies Home Medications Reviewed patient Home Medication Reconciliation performed by pharmacy medication reconciliations electronic service technician and/or nursing. Patients Allergies have been reviewed. Allergies Allergies Coded Allergies Penicillins (Unverified Allergy, Unknown, 09/25/12) Past Kjilakm-Lyzeqh-Nseozq Hx Past Med/Social Hx: Reviewed Nursing Past Med/Soc Hx Patient Social History Employed/Student: employed Alcohol Use: Occasionally Uses (PER FRIEND) Recreational Drug Use: Yes (THC--PER FRIEND) Drug of Choice: MARIJUANA Smoking Status: Current Everyday Smoker Type Used: Cigarettes 2nd Hand Smoke Exposure: Yes Recent Foreign Travel: No Contact w/other who traveled: No Recent Hopitalizations: No Recent Infectious Disease Expo: No Immunizations Up To Date Tetanus Booster (TDap): More than 5yrs Pediatric: Yes Seasonal Allergies Seasonal Allergies: No Past Medical History Surgeries: Abdominal, Appendectomy Neurological: Headaches /Migraines Reproductive: No Gastrointestinal: Ulcer History of Blood Disorders: No Adverse Reaction to Blood Calderon: No Family History No Pertinent Family Hx Review of Systems ROS-Unable to Obtain: INtubated and unrespsonsive Constitutional: see HPI Physical Exam Physical Exam Vital Signs Vital Signs - First Documented 05/01/17 05/01/17 09:40 10:20 Temp 97.1 Pulse 109 Resp 12 B/P (MAP) 168/133 (145) Pulse Ox 82 O2 Delivery Ambu-Bag FiO2 100 Capillary Refill : Greater Than 3 Seconds Results Results/Procedures Labs Laboratory Tests 05/01/17 10:00 Patient resulted labs reviewed. Imaging: Reviewed Imaging Films, Reviewed Imaging Report Assessment/Plan Admission Diagnosis SAH Admission Status: Inpatient Order (span 2 midnights) Reason for Inpatient Admission: Intubated, on pressors, unstable Critical Care Critically Ill Patient Critical Care Start Date: May 01, 2017 Critical Care Start Time: 14:42 Stop date: May 01, 2017 Stop Time: 15:48 Diagnosis/Problems Diagnosis/Problems (1) Cardiac arrest Status: Acute Assessment & Plan: s/p cardiac arrest in the field and in hospital Unable to cool patient but has SAH so contraindicated Continue pressors Dr Rodas consulted, appreciate recs (2) Subarachnoid hemorrhage Status: Acute Assessment & Plan: CT head reveals severe hemorrhage Contacted [facility] Transfer line at 1510 Received call back at [address] Cristina White deployed and en route (3) Acute respiratory failure Status: Acute Assessment & Plan: Pulmonary edema on CXR s/p Lasix in ER profoundly hypoxia- paO2 54 on PEEP 20 and FiO2 of 100% Qualifiers: Respiratory failure complication: hypoxia Qualified Codes: J96.01 - Acute respiratory failure with hypoxia (4) Pulmonary edema Status: Acute Qualifiers: Chronicity: acute Qualified Codes: J81.0 - Acute pulmonary edema RIAN LEIJA MD May 01, 2017 15:13
[2017-05-01] MEDS ORDERED: DOPamine DRIP 250 ML IV ONE (15:54)
[2017-05-01] MEDS ORDERED: TRANEXAMIC ACID 100 MG/ML 10 ML INJECTION IV ONE (15:59)
[2017-05-01 16:35] VITALS: BP 109/94
[2017-05-01] MEDS ORDERED: DOPamine DRIP 250 ML IV SCH ×2 (18:30→19:00)
[2017-05-01] MEDS ORDERED: niCARdipine IV 50 MG in NS (IVPB) 230 ML IV SCH (18:30)
[2017-05-01] MEDS ORDERED: NOREPINEPHRINE 4 MG in NS (IVPB) 250 ML IV SCH (18:30)
[2017-05-01] MEDS ORDERED: LEVETIRACETAM INJECTION 500 MG in NS (IVPB) 100 ML IV SCH (21:00)
== END 2017-05-01 16:35 | disposition short-term general hospital (02) ==
LOC: EDUNIT# 09:40 → ER 09:42 → UNDOADMIN 15:07 → ICU 15:07 → ER 16:35
DX: I60.9 Nontraumatic subarachnoid hemorrhage, unspecified (principal); I10 Essential (primary) hypertension; J18.1 Lobar pneumonia, unspecified organism; J96.00 Acute respiratory failure, unspecified whether with hypoxia or hypercapnia; R73.9 Hyperglycemia, unspecified; E83.42 Hypomagnesemia; E83.51 Hypocalcemia; Z88.0 Allergy status to penicillin; Z87.19 Personal history of other diseases of the digestive system; Z90.49 Acquired absence of other specified parts of digestive tract
CPT/HCPCS: 31500; 36415; 36600; 51702; 70450; 71045; 80053; 80306; 80320; 80329; 81000; 82805; 83605; 83735; 83880; 84484; 85007; 85027; 85610; 85730; 87040; 93005; 93041; 94640; 96365; 96367; 96368; 96375; 99291; 99292

== ENCOUNTER 2017-07-14 14:00 | Outpatient (RCR) | payer BC ==
[~2017-07-14 14:00] MED LIST changes: -ROCURONIUM 10 MG/ML 5 ML SYRINGE IV ONE; -SUCCINYLCHOLINE INJ 100 MG/5 ML SYR ONE
== END 2017-07-14 15:51 | disposition home or self-care (01) ==
PROVIDERS: ATTEND Physical Medicine & Rehabilitation
DX: I60.8 Other nontraumatic subarachnoid hemorrhage (principal); R29.898 Other symptoms and signs involving the musculoskeletal system; M25.361 Other instability, right knee; R20.0 Anesthesia of skin